=== PATIENT | male | born 1960 | race Caucasian/White ===

== ENCOUNTER → 2017-03-13 | Outpatient (REF) | payer OTHER ==
[2017-03-13 23:05] LABS: INFLUENZA A AMPLIFICATION POSITIVE (NEGATIVE); INFLUENZA B AMPLIFICATION NEGATIVE (NEGATIVE); RSV AMPLIFICATION NEGATIVE (NEGATIVE)
== END ==
LOC: M LAB REF 10:03
DX: J11.1 Influenza due to unidentified influenza virus with other respiratory manifestations (principal)

== ENCOUNTER 2018-02-28 09:13 | Day surgery (SDC) | payer OTHER ==
[~2018-02-28] VITALS: Ht 167.6 cm; Wt 124.6 kg
[~2018-02-28 09:13] MED LIST: LIDOCAINE 2% INJ 100 MG/5 ML SDV (FOR ANES.) As Ordered ONE; NS 1,000 ML IV SCH; PROPOFOL 200 MG/20 ML VIAL As Ordered ONE
--- NOTE | 2018-02-28 10:34 | ROOR ---
Patient Name: Tuan Ramirez Procedure Date: 02/28/2018 9:49 AM Date of : 1960 Age: 57 Room: [facility] Gender: Male Note Status: Finalized Procedure: Colonoscopy Indications: Screening for colorectal malignant neoplasm Providers: Roberto Molina MD Referring MD: Anuradha Burns MD Requesting Provider: Medicines: Monitored Anesthesia Care Complications: No immediate complications. Procedure: Pre-Anesthesia Assessment: - Prior to the procedure, a History and Physical was performed, and patient medications and allergies were reviewed. The patient is competent. The risks and benefits of the procedure and the sedation options and risks were discussed with the patient. All questions were answered and informed consent was obtained. Patient identification and proposed procedure were verified by the physician, the nurse and the joint runner in the procedure room. Mental Status Examination: alert and oriented. Airway Examination: normal oropharyngeal airway and neck mobility. Respiratory Examination: clear to auscultation. CV Examination: normal. Prophylactic Antibiotics: The patient does not require prophylactic antibiotics. Prior Anticoagulants: The patient has taken no previous anticoagulant or antiplatelet agents. ASA Grade Assessment: II - A patient with mild systemic disease. After reviewing the risks and benefits, the patient was deemed in satisfactory condition to undergo the procedure. The anesthesia plan was to use monitored anesthesia care (MAC). Immediately prior to administration of medications, the patient was re-assessed for adequacy to receive sedatives. The heart rate, respiratory rate, oxygen saturations, blood pressure, adequacy of pulmonary ventilation, and response to care were monitored throughout the procedure. The physical status of the patient was re-assessed after the procedure. The Colonoscope was introduced through the anus and advanced to the cecum, identified by appendiceal orifice and ileocecal valve. The colonoscopy was technically difficult and complex due to a redundant colon and a tortuous colon. Successful completion of the procedure was aided by applying abdominal pressure. The patient tolerated the procedure well. The quality of the bowel preparation was good. Findings: The perianal and digital rectal examinations were normal. A few medium-mouthed diverticula were found in the sigmoid colon. The colon (entire examined portion) appeared normal. No additional abnormalities were found on retroflexion. Impression: - Diverticulosis in the sigmoid colon. - The entire examined colon is normal. - No specimens collected. Recommendation: - Discharge patient to home (ambulatory). - Repeat colonoscopy in 10 years for screening purposes. Roberto Molina MD Roberto Molina MD 02/28/2018 10:34:31 AM This report has been signed electronically. Number of Addenda: 0 Note Initiated On: 02/28/2018 9:49 AM Estimated Blood Loss: Estimated blood loss: none.
[2018-02-28 10:50] VITALS: BP 146/98
== END 2018-02-28 10:59 | disposition home or self-care (01) ==
LOC: M OPP 09:13
PROVIDERS: ATTEND Surgery
DX: Z12.11 Encounter for screening for malignant neoplasm of colon (principal); K57.30 Diverticulosis of large intestine without perforation or abscess without bleeding

== ENCOUNTER → 2018-03-13 | Outpatient (CLI) | payer OTHER ==
--- NOTE | 2018-03-13 11:00 | REP ---
Cervical spine MRI study without contrast: History: Primary osteoarthritis right shoulder. Cervical degenerative disc disease. Injury in a fall in December 2017. Comparison MRI study of the cervical spine is from April 30, 2010. Technique: Sagittal and axial T1 and T2-weighted scans are acquired in the usual fashion with and without fat saturation. Sequences include spin echo, turbo spin-echo, and STIR imaging sequences. MRI findings: There is straightening of the normal cervical lordosis. There is a fairly large hemangioma in the T1 vertebral body. This is unchanged from comparison MRI study April 30, 2010. Cortical and medullary bone signal intensity are otherwise normal. There are some mild reactive marrow changes on either side of the degenerated C6-C7 disc. These changes are new when compared with the prior MRI. Degenerative narrowing is also noted in the C5-6 and C4-5 disc spaces slightly more prominent than on the 2010 study. Cervical cord is normal in coarse, caliber and signal intensity. At the C6-7 disc level, axial and sagittal images today demonstrate a right posterior focal disc protrusion with discogenic spurring flattening the right ventral margin of the cervical cord. There is some ligamentum flavum hypertrophy noted on the left side of the canal as well dorsally. There is uncovertebral spurring producing significant right-sided neural foraminal narrowing is C6-7. Minimal uncovertebral spurring is noted at the left side. At C5-6, there is diffuse posterior disc bulging and osteophytic ridging. Mild bilateral uncovertebral spurring is seen, left a little more than right. At C4-5, there is mild central disc bulging. No other significant finding. The C3-4 level is unremarkable. At C2-3, there is mild right-sided uncovertebral spurring. No cord compression is seen. Incidental note is made of discogenic spurring on the left side of the thecal sac at T1-T2 in the upper thoracic spine. No thoracic cord compression is seen. Mild bilateral T1-T2 neural foraminal narrowing is seen on sagittal images due to discogenic spurring. This is unchanged. Impression: Degenerative spondylosis changes most pronounced at the C6-C7 and C5-6. There is right-sided neural foraminal narrowing at C6-7 and left-sided neural foraminal narrowing at C5-6 as above. Changes are more pronounced than on the prior study. Electronically Signed by Tuan Sweeney MD 03/13/2018 01:25 P
--- NOTE | 2018-03-13 11:21 | REP ---
MRI RIGHT SHOULDER: TECHNIQUE: Axial T2 fat sat, gradient echo, sagittal oblique T2 fat sat, coronal oblique T1, T2 fat sat. There is a complete full thickness tear of the supraspinatus tendon with retraction proximally 4 cm. There is a partial tear of the infraspinatus and subscapularis tendons as well. There are moderate hypertrophy degenerative changes of the acromioclavicular joint with downward sloping of the acromion, which is type 2. The biceps tendon is slightly displaced out of the bicipital groove. There is mild surrounding fluid. There is no Hill-Sachs deformity. The deltoid muscle demonstrates no abnormal signal. There is fraying of the biceps labral complex. I do not see evidence of labral tear. There is mild subchondral cystic change of the distal clavicle. There is mild subchondral marrow edema in the humeral head. There is a moderate joint effusion with fluid extending into the subacromial subdeltoid bursae. IMPRESSION: Full thickness tear supraspinatus tendon with retraction of approximately 4 cm. There are partial tears of the subscapularis and infraspinatus tendons. There are moderate hypertrophic degenerative changes of the acromioclavicular joint. The acromion is downward sloping and type 2. There is fraying of the biceps labral complex. I do not see a definite discrete labral tear. There is mild subchondral marrow edema of the humeral head and subchondral cystic change in the distal clavicle. Moderate joint effusion with fluid extending into the subacromial subdeltoid bursae. Electronically Signed by Carlos Baig MD 03/13/2018 12:45 P
== END ==
LOC: M RAD 08:46
PROVIDERS: ATTEND Physician Assistant
DX: M19.011 Primary osteoarthritis, right shoulder (principal); M50.30 Other cervical disc degeneration, unspecified cervical region; S46.801A Unspecified injury of other muscles, fascia and tendons at shoulder and upper arm level, right arm, initial encounter; X58.XXXA Exposure to other specified factors, initial encounter; Y92.9 Unspecified place or not applicable; M25.411 Effusion, right shoulder; M50.222 Other cervical disc displacement at C5-C6 level; M50.223 Other cervical disc displacement at C6-C7 level; M50.221 Other cervical disc displacement at C4-C5 level; M47.892 Other spondylosis, cervical region

== ENCOUNTER 2018-04-23 10:33 | Day surgery (SDC) | payer OTHER ==
[~2018-04-23] VITALS: Ht 167.6 cm; Wt 123.4 kg
[~2018-04-23 10:33] MED LIST changes: -LIDOCAINE 2% INJ 100 MG/5 ML SDV (FOR ANES.) As Ordered ONE; +LR 1,000 ML IV ONE; -NS 1,000 ML IV SCH; -PROPOFOL 200 MG/20 ML VIAL As Ordered ONE
[2018-04-23] MEDS ORDERED: EPINEPHrine 1MG/ML INJ 30ML MD-VIAL As Ordered ONE (11:03)
[2018-04-23] MEDS ORDERED: ROCURONIUM BROMIDE 50 MG/5 ML VIAL As Ordered ONE ×2 (11:44→14:23)
[2018-04-23] MEDS ORDERED: LIDOCAINE 2% INJ 100 MG/5 ML SYRINGE As Ordered ONE (11:44)
[2018-04-23] MEDS ORDERED: fentaNYL 100 MCG/2 ML INJECTION (J3010) As Ordered ONE ×2 (11:44→11:48)
[2018-04-23] MEDS ORDERED: MIDAZOLAM INJ 2 MG/2 ML VIAL (J2250) As Ordered ONE ×2 (11:44→11:48)
[2018-04-23] MEDS ORDERED: PROPOFOL 200 MG/20 ML VIAL As Ordered ONE (11:44)
[2018-04-23] MEDS ORDERED: MIDAZOLAM INJ 2 MG/2 ML VIAL (J2250) IV ONE (13:00)
[2018-04-23] MEDS ORDERED: fentaNYL 100 MCG/2 ML INJECTION (J3010) IV ONE (13:00)
[2018-04-23] MEDS ORDERED: GLYCOPYRROLATE INJ 0.2 MG/ML 2 ML VIAL As Ordered ONE (13:10)
[2018-04-23] MEDS ORDERED: ceFAZolin 1GM INJ (J0690 PER 500MG) As Ordered ONE ×2 (13:32→13:34)
[2018-04-23] MEDS ORDERED: ONDANSETRON 4MG/2ML VIAL (J2405) As Ordered ONE (15:49)
[2018-04-23] MEDS ORDERED: dexameTHASONE 4 MG/ML 1ML VIAL (J1100) As Ordered ONE (15:49)
[2018-04-23] MEDS ORDERED: SUGAMMADEX SODIUM 500 MG/5 ML VIAL (BRIDION) As Ordered ONE (15:56)
[2018-04-23] MEDS ORDERED: fentaNYL 100 MCG/2 ML INJECTION (J3010) IV PRN (16:45)
[2018-04-23] MEDS ORDERED: ONDANSETRON 4MG/2ML VIAL (J2405) IV PRN (16:45)
[2018-04-23] MEDS ORDERED: LR 1,000 ML IV SCH ×2 (16:45→18:15)
[2018-04-23] MEDS ORDERED: HYDROMORPHONE HCL 0.5 MG/ 0.5 ML SYRINGE (J1170 PER 1) IV PRN (16:45)
[2018-04-23] MEDS ORDERED: PERCOCET 5MG/325MG TAB PO PRN (16:45)
[2018-04-23 18:40] VITALS: BP 137/80
--- NOTE | 2018-04-23 20:11 | ECGEPIP ---
Stationary ECG Study [facility] Test Date: 2018-04-23 Pat Name: DAYLIN ARCOS Department: Room: - Gender: M Director Digital Communications: : 1960 Requested By: FELICITA Asencio Order Number: [id number] Reading MD: Oneal Hinojosa Measurements Intervals [place] Rate: 63 P: 52 UT: 179 QRS: -16 QRSD: 112 T: 9 QT: 402 QTc: 414 Interpretive Statements Normal sinus rhythm with sinus arrhythmia Leftward axis Early anterior R-wave progression No significant change since prior tracing of 09/11/2011 Electronically Signed On 04-23-2018 20:11:38 EDT by Oneal Hinojosa
--- NOTE | 2018-04-25 09:21 | RO ---
DATE OF PROCEDURE: 04/23/2018 PREOPERATIVE DIAGNOSES: 1. Right shoulder massive rotator cuff tear. 2. Right shoulder long head biceps tendonitis. 3. Right shoulder acromioclavicular joint arthritis. 4. Right shoulder impingement. POSTOPERATIVE DIAGNOSES: 1. Right shoulder massive rotator cuff tear. 2. Right shoulder long head biceps tendonitis. 3. Right shoulder acromioclavicular joint arthritis. 4. Right shoulder impingement. PROCEDURE 1. Right shoulder arthroscopic rotator cuff repair including subscapularis. 2. Right shoulder open subpectoral biceps tenodesis. 3. Right shoulder arthroscopic distal clavicle excision (Fadia procedure). 4. Right shoulder extensive debridement including chondroplasty, labral debridement and subacromial decompression. SURGEON: Dr. Ryan Preciado. REGISTRATION COORDINATOR: ELIJAH Bustos ANESTHESIA: Genera with preoperative nerve block. IV FLUIDS: Lactated Ringer's. ESTIMATED BLOOD LOSS: 5 mL IMPLANTS: Arthrex proximal biceps button times one. Arthrex 4.75 mm Peak SwiveLock anchors times five and an Arthrex 5.5 mm corkscrew anchor times one. CLOSURE: Nylon. PROCEDURE: The patient was identified in preoperative holding area. The right shoulder marked by myself. He had a preoperative nerve block by anesthesia then was brought to the operating room, placed supine on OR table with a beanbag. General anesthesia was then induced. He received appropriate IV antibiotics within 1 hour of incision. Examination under anesthesia revealed 170 degrees of forward flexion, 80 of external rotation with arm at his side and no increased anterior or posterior translation. He had bilateral Venodyne boots for DVT prophylaxis. He was then placed into the left side down lateral decubitus position with an axillary roll and all bony prominences were well padded. Right arm was wrapped in the Arthrex star sleeve and then attached to the lateral decubitus traction perera with 10 pounds of traction. The right shoulder was then prepped and draped in the normal sterile fashion with Chloraprep. Prior to incision, a time-out was performed per hospital protocol. Marcial Mosher was present for the entire procedure and participated in all essential portions of the procedure. This included patient positioning and draping, holding the arthroscope, retrieving sutures, using a mallet and Awl as well as inserting anchors. He also used the arthroscopic suture cutter and performed a wound closure. The right shoulder was insufflated with lactated Ringer's. Standard posterior viewing portal made #11 blade. 30 degrees arthroscope was introduced into the joint. Diagnostic arthroscopy revealed primarily grade 1 chondromalacia of the humeral head and glenoid. A few patchy areas a grade 2 with some unstable superficial flaps on the glenoid and then more diffuse grade 2 at the junction of the articular cartilage of the humeral head and the greater tuberosity. There was some degenerative labral tearing and there was some actual longitudinal tearing of the long head of the biceps tendon. The subscapularis had some longitudinal tearing as well most notably the upper one third. The teres minor was intact but there was tearing of both the infra- and supraspinatus with large retracted tears. An anterior working portal was established through the rotator interval and chondroplasty was then performed with the shaver. Tenotomy was performed with the meniscal biter due to the tearing of the long head of the biceps and the need to repair the subscapularis. The tendon stump was debrided back to the superior labrum. Any degenerative labral tearing was cleaned up with the shaver. I then proceeded with an open subpectoral biceps tenodesis. #15 blade used to make an incision just lateral to the axilla and cautery Metzenbaum scissors used to dissect down the bicipital fascia. Deep fascia was carefully opened with Metzenbaum scissors and a right angle clamp used to dissect out the long head of the biceps tendon. Tendon was easily retrieved and there was extensive degeneration with longitudinal tearing. Arthrex proximal biceps kit was then opened and the FiberLoop used to place a running locking whip stitch. Excess tendon was trimmed and sent to pathology. FiberWire sutures then loaded through the button per routine. Drill hole was made within the bicipital groove just proximal to lower edge of the pectoralis major tendon and then irrigation used to remove all bony debris. Button was passed through the drill holes, sutures were toggled, we flipped the button and then docked the tendon nicely along the bicipital groove. This was found to nicely restore the resting tension. Curve free needle was then used to pass one limb of FiberWire back through the tendon and lock the construct in place. Those knots were tied by hand. Again nice quaker of the resting tension. That incision was then extensively irrigated, closed in a layered fashion of #2-0 Vicryl and a running #3-0 Nylon. Arthroscope was placed back into the joint and posterior lever push maneuver performed where there was lift off of the subscapularis. An accessory superolateral portal was created and then shaver was used to clear soft tissue off of the lesser tuberosity footprint, remove 1-2 mm of articular cartilage to broaden the footprint and create a bleeding surface. Scorpion was then used to pass Fiber tape through the subscapularis further medial through healthier tissue. This was passed twice in a horizontal mattress fashion. Those sutures were then retrieved out the original anterior portal, loaded through a 4.75 mm Peak SwiveLock anchor. Punch was used to create a socket in the lesser tuberosity and then an anchor was docked. Unfortunately the eyelet broke during insertion so the SwiveLock anchor and the eyelet were removed in its entirety and sutures were loaded through a new 4.75 SwiveLock. The anchor was docked, malleted in and then inserted by hand after tensioning the sutures. This had excellent fixation and nicely advanced the subscapularis onto the lesser tuberosity. Sutures were cut with a knit goods cutter hand. The arthroscope was then placed into the subacromial space where there was extensive bursitis and a large retracted tear of the supra- and infraspinatus. Extensive bursectomy was performed of the shaver and cautery. I elected to then proceed with the arthroscopic distal clavicle excision prior to the rotator cuff repair out of concern for poor visualization later in the case. The shaver and cautery were used to clear remaining soft tissue off of the AC joint and then a 4 mm bur was used to remove the entire end of the distal clavicle to create a free space between the clavicle and acromion. I then proceeded with a double row rotator cuff repair. Again extensive bursectomy was carried out and there was a large crescent shaped tear of the supra- and infraspinatus. The cuff grasper was used to manipulate the tendon to determine the appropriate site for anchors and configuration of repair. I first placed a 5.5 corkscrew in the anterior greater tuberosity to set the leading edge of the supraspinatus. Sutures were placed in a horizontal mattress fashion. The scorpion knots were tied by hand. Sutures were not cut. They were saved for incorporation to the lateral row. I then proceeded with a SpeedBridge using 4.75 Peak SwiveLock anchors. I should mention that I used the shaver cautery and a curette to clear all soft tissue off the greater tuberosity to create a bleeding surface. Proceeding with the SpeedBridge, the anterior medial anchor was placed. Those sutures were passed together with the scorpion. The posterior medial anchor was then placed just off the articular surface. Those [place] tape sutures were passed individually to help avoid a dog ear. A separate [place] wire was then additionally passed in the far posterior portion of the tear also to prevent a dog ear. The anterior sutures from the corkscrew as well as [place] tape and Fiber tape were then retrieved out the lateral cannula loaded through a 4.75 SwiveLock anchor I then placed the anterolateral anchor per routine after tensioning the sutures. This had excellent fixation. These steps were repeated with one limb of Fiber and [place] tape as well as the posterior [place] wire sutures placed through a posterior lateral anchor per routine. There was excellent fixation on that anchor and excellent advancement of the rotator cuff onto the greater tuberosity. I should mention that I performed fairly extensive releases of adhesions between the retracted tendon and the acromion to gain improved lateral excursion prior to the repair. This completed the double row rotator cuff repair. There are no dog ears. Shoulder was gently internally and externally rotated. The cuff moved nicely as a unit. Shoulder was irrigated and drained. Portals closed with nylon suture. Bulky sterile dressing was applied then he was carefully placed into his Arc 2.0 sling. He was extubated, transferred to PACU in stable condition.
== END 2018-04-23 18:45 | disposition home or self-care (01) ==
LOC: M SDC 10:33
PROVIDERS: ATTEND Orthopaedic Surgery
DX: M75.121 Complete rotator cuff tear or rupture of right shoulder, not specified as traumatic (principal); M75.21 Bicipital tendinitis, right shoulder; M19.011 Primary osteoarthritis, right shoulder; M75.41 Impingement syndrome of right shoulder; Z98.84 Bariatric surgery status
CPT/HCPCS: 23430; 29823; 29824; 29826; 29827; 64415; 88304; 93005; C1713; J0690; J1100; J2250; J2405; J3010

== ENCOUNTER → 2018-09-17 | Outpatient (REF) | payer OTHER ==
[2018-09-17 20:21] LABS: BASO % 0.5 % (0.0-1.0); EOS # 0.1 10^3/uL (0.0-0.50); EOS % 2.1 % (0.0-3.0); HEMATOCRIT 44.6 % (42.0-52.0); LYMPH # 1.7 10^3/uL (1.5-4.5); MEAN CORPUSCULAR HEMOGLOBIN 29.6 pg (27.0-33.0); MEAN CORPUSCULAR HGB CONC 33.6 g/dl (32.0-36.5); MEAN CORPUSCULAR VOLUME 88.1 fl (80.0-96.0); MONO # 0.6 10^3/uL (0.0-0.8); MONO % 9.2 % (0.0-5.0); NEUTROPHILS # 3.7 10^3/uL (1.8-7.7); NEUTROPHILS % 60.9 % (36.0-66.0); PLATELET COUNT, AUTOMATED 181 10^3/uL (150-450); RED BLOOD COUNT 5.06 10^6/uL (4.30-6.10); WHITE BLOOD COUNT 6.1 10^3/uL (4.0-10.0)
[2018-09-17 20:33] LABS: HEMATOCRIT 44.6 % (42.0-52.0)
[2018-09-17 20:38] LABS: ALT/SGPT 29 U/L (12-78); BILIRUBIN,TOTAL 0.4 MG/DL (0.2-1.0); BLOOD UREA NITROGEN 20 MG/DL (7-18); CALCIUM LEVEL 8.6 MG/DL (8.5-10.1); CARBON DIOXIDE LEVEL 29 MEQ/L (21-32); CHLORIDE LEVEL 109 MEQ/L (98-107); CHOLESTEROL LEVEL 217 MG/DL (<200); CHOLESTEROL RISK RATIO 5.166 (<5); CREATININE FOR GFR 0.94 MG/DL (0.70-1.30); FERRITIN 31 NG/ML (26-388); GLOMERULAR FILTRATION RATE > 60.0 (>56); GLUCOSE, FASTING 80 MG/DL (70-100); HDL CHOLESTEROL 42 MG/DL (>40); LDL CHOLESTEROL 107 MG/DL (<100); NON-HDL-C 175 MG/DL; POTASSIUM SERUM 4.4 MEQ/L (3.5-5.1); SODIUM LEVEL 143 MEQ/L (136-145); TOTAL PROTEIN 7.6 GM/DL (6.4-8.2); TRIGLYCERIDES LEVEL 340 MG/DL (<150)
[2018-09-17 21:32] LABS: VITAMIN B12 LEVEL 335 PG/ML (247-911)
[2018-09-17 22:29] LABS: HEMOGLOBIN A1c 5.7 %
[2018-09-18 10:45] LABS: TOTAL 25(OH) VITAMIN D 17.4 NG/ML (30.0-100.0)
[2018-09-21 11:40] LABS: VITAMIN B1 LEVEL WHOLE BLOOD 135.4 nmol/L (66.5-200.0)
== END ==
LOC: M SFHCLERA 15:43
PROVIDERS: ATTEND Family Medicine
DX: Z98.84 Bariatric surgery status (principal); E66.01 Morbid (severe) obesity due to excess calories; Z12.5 Encounter for screening for malignant neoplasm of prostate
CPT/HCPCS: 80053; 80061; 82306; 82607; 82728; 82747; 83036; 84425; 84443; 84630; 85025; G0103

== ENCOUNTER → 2018-11-15 | Outpatient (REF) | payer OTHER ==
[2018-11-15 16:35] LABS: BLOOD UREA NITROGEN 18 MG/DL (7-18); CALCIUM LEVEL 8.8 MG/DL (8.5-10.1); CARBON DIOXIDE LEVEL 30 MEQ/L (21-32); CHLORIDE LEVEL 104 MEQ/L (98-107); CREATININE FOR GFR 0.91 MG/DL (0.70-1.30); GLOMERULAR FILTRATION RATE > 60.0 (>56); GLUCOSE, FASTING 80 MG/DL (70-100); POTASSIUM SERUM 4.5 MEQ/L (3.5-5.1); SODIUM LEVEL 140 MEQ/L (136-145)
== END ==
LOC: M SFHCLERA 12:07
PROVIDERS: ATTEND Family Medicine
DX: I10 Essential (primary) hypertension (principal)

== ENCOUNTER → 2019-02-20 | Outpatient (REF) | payer OTHER ==
[2019-02-20 17:15] LABS: CHOLESTEROL RISK RATIO 4.977 (<5); TOTAL 25(OH) VITAMIN D 35.7 NG/ML (30.0-100.0)
== END ==
LOC: M SFHCLERA 12:23
PROVIDERS: ATTEND Family Medicine
DX: E55.9 Vitamin D deficiency, unspecified (principal); E78.5 Hyperlipidemia, unspecified

== ENCOUNTER → 2019-04-22 | Outpatient (CLI) | payer OTHER ==
--- NOTE | 2019-04-22 19:12 | REP ---
Left knee 5-year : There is no fracture or dislocation. Mineralization and joint spaces are normal. There are no calcifications or foreign bodies. Impression: Negative left knee . Electronically Signed by Carlos Archibald MD 04/22/2019 07:04 P
== END ==
LOC: M RAD 11:17
PROVIDERS: ATTEND Physician Assistant Medical
DX: M25.562 Pain in left knee (principal)

== ENCOUNTER → 2019-07-30 | Outpatient (REF) | payer OTHER ==
[2019-07-30 14:51] LABS: BLOOD UREA NITROGEN 22 MG/DL (7-18); CALCIUM LEVEL 8.4 MG/DL (8.8-10.2); CARBON DIOXIDE LEVEL 27 MEQ/L (21-32); CHLORIDE LEVEL 107 MEQ/L (98-107); CHOLESTEROL LEVEL 158 MG/DL (<200); CHOLESTEROL RISK RATIO 3.361 (<5); CREATININE FOR GFR 1.04 MG/DL (0.70-1.30); GLOMERULAR FILTRATION RATE > 60.0 (>49); GLUCOSE, FASTING 97 MG/DL (70-100); HDL CHOLESTEROL 47 MG/DL (>40); LDL CHOLESTEROL 87 MG/DL (<100); NON-HDL-C 111 MG/DL; POTASSIUM SERUM 4.3 MEQ/L (3.5-5.1); SODIUM LEVEL 139 MEQ/L (136-145); TRIGLYCERIDES LEVEL 119 MG/DL (<150)
== END ==
LOC: M SFHCLERA 12:40
PROVIDERS: ATTEND Family Medicine
DX: I10 Essential (primary) hypertension (principal); E78.5 Hyperlipidemia, unspecified

== ENCOUNTER → 2021-10-14 | Outpatient (CLI) | payer OTHER | LOC: M LABSMTC 09:40 | PROVIDERS: ATTEND Anesthesiology | DX: Z01.812 Encounter for preprocedural laboratory examination (principal); Z20.822 Contact with and (suspected) exposure to COVID-19 ==

== ENCOUNTER 2021-10-19 08:44 | Day surgery (SDC) | payer OTHER ==
[~2021-10-19] VITALS: Ht 167.6 cm; Wt 120.1 kg
[2021-10-19] MEDS ORDERED: LIDOCAINE W/EPINEPHRINE 1% 20ML VIAL As Ordered ONE ×2 (09:44→09:46)
[2021-10-19] MEDS ORDERED: COCAINE 4% 4ML NASAL SOLUTION BTL As Ordered ONE (09:45)
[2021-10-19] MEDS ORDERED: OXYMETAZOLINE 0.05% NASAL SPRAY (AFRIN) As Ordered ONE (09:45)
[2021-10-19] MEDS ORDERED: MIDAZOLAM INJ 2MG/2ML VIAL (J2250 PER 1MG) As Ordered ONE (09:47)
[2021-10-19] MEDS ORDERED: LIDOCAINE 2% 100MG/5ML SDV (FOR ANES.) As Ordered ONE (09:47)
[2021-10-19] MEDS ORDERED: ROCURONIUM BROMIDE 50 MG/5 ML VIAL As Ordered ONE (09:47)
[2021-10-19] MEDS ORDERED: propofoL 200 MG/20 ML VIAL As Ordered ONE (09:47)
[2021-10-19] MEDS ORDERED: fentaNYL 250 MCG/5 ML INJECTION As Ordered ONE (09:47)
[2021-10-19] MEDS ORDERED: ONDANSETRON 4MG 2ML VIAL As Ordered ONE (10:25)
[2021-10-19] MEDS ORDERED: KETOROLAC 60MG 2ML VIAL As Ordered ONE (10:25)
[2021-10-19] MEDS ORDERED: SUGAMMADEX SODIUM 500 MG/5 ML VIAL (BRIDION) As Ordered ONE (10:25)
[2021-10-19] MEDS ORDERED: ACETAMINOPHEN 1000MG 100ML IV BTL (OFIRMEV) (J0131 PER 10MG) As Ordered ONE (10:25)
[2021-10-19] MEDS ORDERED: dexameTHASONE 4 MG/ML 1ML VIAL (J1100 PER 1MG) As Ordered ONE (10:25)
[2021-10-19] MEDS ORDERED: LR 1,000 ML IV SCH ×2 (11:15→12:25)
[2021-10-19] MEDS ORDERED: oxyCODONE 5MG TAB PO PRN (11:15)
[2021-10-19] MEDS ORDERED: MORPHINE 2 MG/ML 1ML VIAL IV PRN (11:15)
[2021-10-19] MEDS ORDERED: ONDANSETRON 4MG 2ML VIAL IV PRN ×2 (11:15→12:30)
[2021-10-19] MEDS ORDERED: fentaNYL 100 MCG/2 ML INJECTION IV PRN (11:15)
[2021-10-19] MEDS ORDERED: ANEXSIA, NORCO 7.5MG/325MG TABLET(HYDROCODONE/APAP) PO PRN (12:30)
[2021-10-19] MEDS ORDERED: MORPHINE 4 MG/ML 1ML VIAL/SYRINGE IV PRN (12:30)
[2021-10-19 12:45] VITALS: BP 161/87
== END 2021-10-19 12:53 | disposition home or self-care (01) ==
LOC: M SDC 08:44
PROVIDERS: ATTEND Otolaryngology
DX: J34.2 Deviated nasal septum (principal); J34.3 Hypertrophy of nasal turbinates
CPT/HCPCS: 30140; 30520; C9046; J0131; J1100; J2250; J2405; J3010